=== PATIENT | male | born 1970 | race Caucasian/White ===

== ENCOUNTER → 2019-09-11 | Outpatient (CLI) | payer MEDICARE | LOC: COL.RAD 14:02 | DX: R31.0 Gross hematuria (principal) ==

== ENCOUNTER 2020-03-29 09:49 | Emergency (ER) | payer MEDICARE ==
[~2020-03-29] VITALS: Ht 167.6 cm; Wt 54.5 kg
[2020-03-29 09:57] VITALS: TEMP 98
[2020-03-29 11:15] LABS: HEMATOCRIT 39.5 % (42.0-52.0); HEMOGLOBIN 13.2 g/dl (13.5-18.0); MEAN CELL VOLUME 87 fl (80.0-100.0); MEAN CORPUSCULAR HEMOGLOBIN 29 pg (27.0-31.0); MEAN CORPUSCULAR HGB CONC 33 g/dl (33.0-37.0); MEAN PLATELET VOLUME 9.2 fl (7.4-10.4); PLATELET COUNT 513 K/mm3 (130-400); RED BLOOD COUNT 4.55 M/mm3 (4.20-5.60); REDCELL DISTRIBUTION WIDTH-CV 13.3 % (11.5-14.5)
[2020-03-29 11:23] LABS: ALBUMIN 3.7 gm/dL (3.5-5.0); BILIRUBIN,TOTAL 0.9 mg/dL (0.0-1.0); CREATININE, serum 0.82 (0.66-1.25); POTASSIUM 5.1 mmol/L (3.4-5.0); TOTAL PROTEIN 8.2 gm/dL (6.4-8.2)
[2020-03-29 11:45] LABS: C-REACTIVE PROTEIN 23.7 mg/dL (0.0-0.9)
[2020-03-29 12:12] LABS: BAND 14 % (0-10); LYMPHOCYTE 3 % (20.0-51.0); NEUTROPHILS 82 % (42.0-75.2)
[2020-03-29 12:13] LABS: PLATELET ESTIMATE INCREASED (NORMAL)
[2020-03-29 13:02] LABS: COLLECTION METHOD CLEAN CATCH
[2020-03-29 13:39] LABS: MUCOUS Present /lpf; PH 8 (5-8); SQUAMOUS EPITHELIAL None Seen /hpf; URINE APPEARANCE Turbid; URINE BACTERIA Many /hpf; URINE BILIRUBIN Negative (NEGATIVE); URINE BLOOD 2+ (NEGATIVE); URINE CALCIUM OXALATE CRYSTAL Present /hpf; URINE COLOR Yellow; URINE GLUCOSE Negative (NEGATIVE); URINE KETONE 1+ (NEGATIVE); URINE LEUKOCYTE ESTERASE 1+ (NEGATIVE); URINE NITRATE Negative (NEGATIVE); URINE PROTEIN(semi-quant) 3+ (NEGATIVE); URINE RBC >50 /hpf; URINE UROBILINOGEN >=4.0 mg/dL (NEGATIVE)
[2020-03-29 13:40] LABS: URINE TRIPLE PHOSPHATE CRYSTAL Present /hpf
[2020-03-29 17:37] VITALS: BP 123/84; PULSE 107
== END 2020-03-29 17:38 | disposition short-term general hospital (02) ==
LOC: COL.ER 09:49 → SURG 13:16 → COL.ER 17:38
PROVIDERS: Nurse Practitioner Primary Care
DX: A41.9 Sepsis, unspecified organism (principal); L89.324 Pressure ulcer of left buttock, stage 4; R64 Cachexia; Z68.1 Body mass index [BMI] 19.9 or less, adult; Z20.828 Contact with and (suspected) exposure to other viral communicable diseases
CPT/HCPCS: J2543; J3370; J7030; J7050; Q9967

== ENCOUNTER 2021-10-10 07:01 | Day surgery (SDC) | payer MEDICARE ==
[~2021-10-10] VITALS: Ht 167.6 cm; Wt 56.0 kg
[2021-10-10] MEDS ORDERED: TOPROL XL 50MG50 MG PO (07:27)
[2021-10-10 07:31] VITALS: BP 131/90; PULSE 85; TEMP 98.9
[2021-10-10 10:30] VITALS: BP 137/54; PULSE 62; TEMP 97.5
[2021-10-10 10:45] VITALS: BP 149/93; PULSE 56
[2021-10-10 11:00] VITALS: BP 138/64; PULSE 56
[2021-10-10 11:10] VITALS: TEMP 97.5
--- NOTE | 2021-10-10 11:10 | NUR ---
Called patient's home health agency, [facility], confirmed fax number. Faxed patient's wound care instructions and home health orders. Sent physical copy's with patient in discharge folder since [facility] said they were having trouble with their fax machine.
[2021-10-10 11:15] VITALS: BP 125/61; PULSE 63
--- NOTE | 2021-10-10 13:28 | NUR ---
1030: Patient arrived back into bay 1 from PACU. Patient is alert and oriented. Vital signs stable on room air. Report received from JAYDEN Louie. Patient requesting blueberry muffin and apple juice. Denies pain and nausea. Call light left within reach. MD already in to talk to dad and step mom. Family at bedside. 1045: Patient tolerating food and drink well. Denies pain or nausea at this time. 1115: Patient vitally stable. Denies pain or nausea at this time. Went through discharge instructions with patient and family. Questions answered. IV removed without complications and coband applied. Patient to get dressed with assistance of step mom and dad. 1130: Escorted to patient entrance via wheelchair to patient entrance. Patient got into personal vehicle with assistance of parents and left in their care.
== END 2021-10-10 11:35 | disposition home health service (06) ==
LOC: SDCO 07:01
DX: L89.893 Pressure ulcer of other site, stage 3 (principal)
CPT/HCPCS: J0690; J1100; J2405; J2704; J3010; J7120

== ENCOUNTER 2021-12-13 09:46 | Emergency (ER) | payer MEDICARE ==
[~2021-12-13] VITALS: Ht 167.6 cm; Wt 54.5 kg
[~2021-12-13 09:46] MED LIST: TOPROL XL 50MG50 MG PO
[2021-12-13 11:11] LABS: BASO % 0.3 % (0.0-2.0); EOS % 0.2 % (0.0-4.0); GRAN # 7.4 K/mm3 (1.4-6.5); GRAN % 82.2 % (42.2-75.2); HEMOGLOBIN 12.3 g/dl (13.5-18.0); LYMPH # 0.8 K/mm3 (1.2-3.4); LYMPH % 8.7 % (20.0-51.0); MEAN CELL VOLUME 86 fl (80.0-100.0); MEAN CORPUSCULAR HEMOGLOBIN 29 pg (27-31); MEAN CORPUSCULAR HGB CONC 34 g/dl (33.0-37.0); MEAN PLATELET VOLUME 9.7 fl (7.4-10.4); MONO # 0.8 K/mm3 (0.1-0.6); MONO % 8.4 % (1.7-9.3); PLATELET COUNT 270 K/mm3 (130-400); RED BLOOD COUNT 4.21 M/mm3 (4.20-5.60); REDCELL DISTRIBUTION WIDTH-CV 12.3 % (11.5-14.5)
[2021-12-13 11:15] LABS: HEMATOCRIT 36.2 % (42.0-52.0)
[2021-12-13 11:23] LABS: ALBUMIN 3.3 gm/dL (3.5-5.0); BILIRUBIN,TOTAL 0.9 mg/dL (0.2-1.2); CALCIUM 10.1 mg/dL (8.4-10.2); CREATININE, serum 0.74 mg/dL (0.72-1.25); POTASSIUM 3.9 mmol/L (3.5-4.5); TOTAL PROTEIN 8.1 gm/dL (6.2-8.1)
[2021-12-13 12:19] VITALS: TEMP 98.8
[2021-12-13 12:28] LABS: COLLECTION METHOD CLEAN CATCH
[2021-12-13 12:48] LABS: PH 5.5 (5.0-8.5); URINE APPEARANCE Cloudy (CLEAR/HAZY); URINE COLOR Yellow (YELLOW); URINE GLUCOSE Negative (NEGATIVE); URINE KETONE 4+ (NEGATIVE); URINE NITRATE Negative (NEGATIVE); URINE PROTEIN(semi-quant) 2+ (NEGATIVE)
[2021-12-13 12:49] LABS: URINE BLOOD 2+ (NEGATIVE)
[2021-12-13 12:53] LABS: MUCOUS Present (NOT PRESENT); URINE BACTERIA Rare /hpf (NONE SEEN); URINE RBC 20-50 /hpf (0-2)
[2021-12-13 13:46] VITALS: BP 136/80; PULSE 88
[2021-12-15] MEDS ORDERED: CIPRO 500MG TA500 MG PO (10:37)
== END 2021-12-13 13:46 | disposition home or self-care (01) ==
LOC: COL.ER 09:46
PROVIDERS: Physician Assistant
DX: L89.324 Pressure ulcer of left buttock, stage 4 (principal)